=== PATIENT | female | born 1955 | race African-American/Black ===

== ENCOUNTER 2017-05-27 12:03 | Day surgery (SDC) | payer MEDICAID ==
[~2017-05-27] VITALS: Ht 154.9 cm; Wt 137.7 kg
[2017-05-27 12:51] LABS: HEMATOCRIT 34.5 % (36.0-48.0); HEMOGLOBIN 10.3 g/dL (12-16); MCH 25.8 pg (26.0-34.0); MCHC 29.9 g/dL (31.0-37.0); MCV 86.5 fL (80.0-100.0); MEAN PLATELET VOLUME 10.7 fL (7.4-10.4); RBC 3.99 10x6/uL (4.00-5.40); RDW 15.3 % (11.5-14.5); WBC 11.6 10x3/uL (4.8-10.8)
[2017-05-27 13:08] LABS: ANION GAP 10.7 mmol/L (8-16); CALCIUM 8.9 mg/dL (8.5-10.1); CARBON DIOXIDE 31.6 mmol/L (21.0-32.0); CREATININE - SERUM 0.9 mg/dL (0.6-1.3); POTASSIUM - SERUM 4.3 mmol/L (3.5-5.1)
[2017-05-27 14:02] VITALS: BP 155/79; Ht 154.9 cm; Wt 137.7 kg
--- NOTE | 2017-05-27 15:53 | NUR ---
1553 DISCHARGE INSTRUCTIONS COMPLETE. NO PRESCRIPTIONS GIVEN. NO QUESTIONS OR CONCERNS. ESCORTED OUT BY LENNY LO ACCOMPANIED BY DAUGHTERS.
--- NOTE | 2017-05-29 08:48 | OP ---
PATIENT NAME: ALEJANDRA PAGE MEDICAL RECORD: [id number] :59 LOCATION:D.OPS ADMISSION DATE: SURGEON: DARLING ZIMMERMAN DO DATE OF OPERATION: 05/27/2017 PROCEDURE: Colonoscopy. INDICATIONS FOR PROCEDURE: History of colon polyps and diverticulosis of colon as well as lower abdominal pain and right side abdominal pain, which the patient states has resolved. SCOPE: Olympus video pediatric colonoscope. MEDICATIONS: Propofol 550 mg IV per anesthesia. WITHDRAWAL TIME: 11 minutes. ESTIMATED BLOOD LOSS: None. COMPLICATIONS: None. Previous colonoscopy was 08/19/2011. FINDINGS: Informed consent was given. The patient was made comfortable with the above medication. After reaching an adequate level of sedation by slow IV push, the patient was placed on her left side. A digital rectal examination was performed and was normal. The endoscope was then advanced under direct visualization through the rectum to the cecum, confirmed by visualization of the appendiceal orifice and ileocecal valve. The scope was slowly withdrawn and mucosa was carefully examined. Prep quality was good. There were no polyps visualized on this examination. There were a few scattered mild diverticula throughout the colon. Retroflexion was performed in the rectum with visualization of small nonbleeding internal hemorrhoids. The endoscope was withdrawn from the patient. The patient tolerated the procedure well and there were no complications. IMPRESSION: 1. Mild diverticulosis. 2. Small nonbleeding internal hemorrhoids. PLAN AND RECOMMENDATIONS: 1. Discharge home when recovery parameters are met. 2. Continue current medications. 3. High fiber diet. 4. Consider supplementation diet with fiber such as Metamucil 1-2 tablespoons daily. 5. Recall colonoscopy in 5-7 years regarding a history of polyps. TRANSINT:[id number] Voice Confirmation ID: [id number] DOCUMENT ID: [id number] OPERATIVE REPORT [id number] ALEJANDRA PAGE DARLING ZIMMERMAN DO at 0848 CC: [id number] DICTATION DATE: 05/27/17 1451 DRAW PRESS OPERATOR: 05/27/17 1732 [facility] 05/27/17 [place] [address]
== END 2017-05-27 15:53 | disposition home or self-care (01) ==
LOC: D.OPS 12:03
PROVIDERS: Anesthesiology
DX: Z86.010 Personal history of colon polyps (principal); I10 Essential (primary) hypertension; E11.9 Type 2 diabetes mellitus without complications; E66.01 Morbid (severe) obesity due to excess calories; Z68.43 Body mass index [BMI] 50.0-59.9, adult; Z01.812 Encounter for preprocedural laboratory examination

== ENCOUNTER → 2018-02-16 09:44 | Outpatient (CLI) | payer MEDICAID ==
[2017-05-27 14:02] VITALS: BMI 57.4
[2018-02-21 03:06] LABS: IMMUNOGLOBULIN E 42 IU/mL (0-100)
== END | disposition home or self-care (01) ==
LOC: D.RT 09:44 → D.LAB 02-17 13:00 → D.RT 02-17 14:00
PROVIDERS: Internal Medicine Pulmonary Disease
DX: J45.909 Unspecified asthma, uncomplicated (principal)

== ENCOUNTER → 2018-09-08 09:09 | Outpatient (CLI) | payer MEDICARE ==
[~2018-09-08] VITALS: Ht 154.9 cm; Wt 141.5 kg
[2018-09-08 10:21] VITALS: Ht 154.9 cm; Wt 141.5 kg
== END | disposition home or self-care (01) ==
LOC: D.FANS 09-07 09:00
DX: E66.01 Morbid (severe) obesity due to excess calories (principal)

== ENCOUNTER 2018-09-09 07:19 | Outpatient (CLI) | payer MEDICARE ==
[2018-09-08 10:21] VITALS: BMI 58.9
== END 2018-09-09 09:15 ==
LOC: D.OPS 07:19
DX: E66.01 Morbid (severe) obesity due to excess calories (principal)

== ENCOUNTER 2018-11-01 05:59 | Day surgery (SDC) | payer MEDICARE, MEDICAID ==
[~2018-11-01] VITALS: Ht 154.9 cm; Wt 137.0 kg
[2018-11-01 06:58] LABS: ANION GAP 12.3 mmol/L (8-16); CALCIUM 8.9 mg/dL (8.5-10.1); CREATININE - SERUM 1.1 mg/dL (0.6-1.3); POTASSIUM - SERUM 4.3 mmol/L (3.5-5.1)
[2018-11-01 07:20] LABS: BASOPHILS 0.4 % (0-2); EOSINOPHILS 3.5 % (0-7); HEMOGLOBIN 10.2 g/dL (12-16); IMMATURE GRANULOCYTES 0.3 % (0-5); MCHC 29.1 g/dL (31.0-37.0); MCV 85.8 fL (80.0-100.0); MEAN PLATELET VOLUME 10.9 fL (7.4-10.4); MONOCYTES 6.9 % (2-11); NEUTROPHILS 69.9 % (40-80); PLATELET COUNT 312 10x3/uL (130-400); RBC 4.08 10x6/uL (4.00-5.40); RDW 15.2 % (11.5-14.5); WBC 10.4 10x3/uL (4.8-10.8)
[2018-11-01] MEDS ORDERED: ATIVAN0.5 MG PO (07:30)
[2018-11-01] MEDS ORDERED: CARTIA XT300 MG PO (07:30)
[2018-11-01] MEDS ORDERED: NORCO 10-325 TA1 TAB (07:31)
[2018-11-01] MEDS ORDERED: GLIMEPIRIDE4 MG PO (07:31)
[2018-11-01] MEDS ORDERED: VOLTAREN100 MG PO (07:31)
[2018-11-01] MEDS ORDERED: RANITIDINE HCL150 M1 PO (07:32)
[2018-11-01] MEDS ORDERED: PRAVACHOL80 MG PO (07:32)
[2018-11-01] MEDS ORDERED: PRINZIDE 20/12.1 TA1 PO (07:32)
[2018-11-01] MEDS ORDERED: CELEXA20 MG PO (07:33)
[2018-11-01 07:38] VITALS: BP 148/77; Ht 154.9 cm; Wt 137.0 kg
--- NOTE | 2018-11-01 10:20 | NUR ---
PT REC'D TO ROOM VIA STRETCHER FROM GI LAB. AWAKE, ALERT, OR IENTED.
--- NOTE | 2018-11-01 10:35 | NUR ---
UP TO BR, VOIDED. IV D/C'D CATH INTACT. TOLERATING FULL LIQ DIET.
--- NOTE | 2018-11-01 10:55 | NUR ---
D/C INSTRUCTOINS EXPLAINED TO PT. VOICED UNDERSTANDING. COPIES OF ALL GIVEN. D/C'D HOME VIA W/C TO PRIVATE CAR.
== END 2018-11-01 11:18 | disposition home or self-care (01) ==
LOC: D.OPS 05:59
PROVIDERS: Anesthesiology
DX: K21.9 Gastro-esophageal reflux disease without esophagitis (principal); K44.9 Diaphragmatic hernia without obstruction or gangrene; E66.01 Morbid (severe) obesity due to excess calories

== ENCOUNTER 2018-11-29 11:11 | Inpatient (IN) | payer MEDICARE, MEDICAID ==
[~2018-11-29] VITALS: Ht 152.4 cm; Wt 130.6 kg
[~2018-11-29 11:11] MED LIST: ATIVAN0.5 MG PO; CARTIA XT300 MG PO; CELEXA20 MG PO; GLIMEPIRIDE4 MG PO; NORCO 10-325 TA1 TAB; PRAVACHOL80 MG PO; PRINZIDE 20/12.1 TA1 PO; RANITIDINE HCL150 M1 PO; VOLTAREN100 MG PO
[2018-12-14] MEDS ORDERED: ACETAMINOPHEN PO (10:47)
[2018-12-14 11:52] LABS: ANION GAP 14.1 mmol/L (8-16); CALCIUM 8.7 mg/dL (8.5-10.1); CREATININE - SERUM 0.9 mg/dL (0.6-1.3); POTASSIUM - SERUM 4.1 mmol/L (3.5-5.1)
[2018-12-14 12:00] LABS: HEMATOCRIT 33.3 % (36.0-48.0); HEMOGLOBIN 9.9 g/dL (12-16); MCH 25.4 pg (26.0-34.0); MCHC 29.7 g/dL (31.0-37.0); MCV 85.6 fL (80.0-100.0); MEAN PLATELET VOLUME 10.5 fL (7.4-10.4); RBC 3.89 10x6/uL (4.00-5.40); RDW 14.8 % (11.5-14.5); WBC 10.6 10x3/uL (4.8-10.8)
[2018-12-15] VITALS (8 sets, daily range): BP systolic 100–154; BP diastolic 55–743; BMI 58.5; BMI 56.3
[2018-12-15] MEDS ORDERED: BAYER CHEWABLE81 MG PO (06:41)
--- NOTE | 2018-12-15 11:00 | NUR ---
RECEIVED TO ROOM 2214 VIA BED FROM PACU. A/O X3. 6 SMALL INSERTION SITES TO ABDOMEN. SKIN INTACT OTHERWISE. DENIES NEEDS. C/O ABDOMINAL PAIN LEVEL 8. OPEN HEARTH FURNACE OPERATOR HELPER INITIATED.
--- NOTE | 2018-12-15 13:30 | NUR ---
UP TO BR WITH ONE PERSON ASSIST. VOIDED WITHOUT DIFFICULTY. REPORTS GAS PAIN IMPROVED WITH ACTIVITY.
--- NOTE | 2018-12-15 20:54 | NUR ---
UP AD ENRIQUE IN ROOM.NO DISTRESS NOTED. ABD SOFT NONDISTENDED. LAP SITES X 6 WITH STERI STRIPS INTACT.IV TO LEFT HAND INTACT WITHOUT REDNESS OR EDEMA NOTED. FAMILY IN ROOM. CL IN REACH
--- NOTE | 2018-12-16 04:01 | NUR ---
I have reviewed this patient and I concur with the Shift Assessment completed by the Licensed Practical Nurse today this shift.
[2018-12-16 05:07] LABS: BASOPHILS 0.1 % (0-2); EOSINOPHILS 2.4 % (0-7); HEMATOCRIT 33.8 % (36.0-48.0); HEMOGLOBIN 9.8 g/dL (12-16); IMMATURE GRANULOCYTES 0.4 % (0-5); LYMPHOCYTES 17.1 % (15-50); MCH 25.2 pg (26.0-34.0); MCV 86.9 fL (80.0-100.0); MEAN PLATELET VOLUME 10.7 fL (7.4-10.4); MONOCYTES 6.2 % (2-11); NEUTROPHILS 73.8 % (40-80); PLATELET COUNT 340 10x3/uL (130-400); RBC 3.89 10x6/uL (4.00-5.40); RDW 15.2 % (11.5-14.5)
[2018-12-16 05:19] LABS: WBC 13.5 10x3/uL (4.8-10.8)
[2018-12-16 05:29] LABS: ALBUMIN 2.7 g/dL (3.4-5.0); BILIRUBIN - TOTAL 0.15 mg/dL (0.2-1.3); CALCIUM 8.4 mg/dL (8.5-10.1); CARBON DIOXIDE 25.9 mmol/L (21.0-32.0); POTASSIUM - SERUM 3.9 mmol/L (3.5-5.1); PROTEIN - SERUM 6.8 g/dL (6.4-8.2)
--- NOTE | 2018-12-16 07:38 | NUR ---
AWAKE AND ALERT. ORIENTED X3. NO C/O AT THIS TIME. LUNGS ARE CLEAR BILATERALLY, NO COUGH NOTED. SKIN IS INTACT WITHOUT REDNESSS EXCEPT 6 SMALL INSERTION SITES TO ABDOMEN WHICH ARE CLEAN AND DRY. IV TO LEFT HAND IS PATENT WITHOUT REDNESS AT INSERTION SITE. DENIES NEEDS.
--- NOTE | 2018-12-16 09:00 | NUR ---
O2 SAT AT 85% ON RA. PLACED ON L2 AT 2L NC SATS UP TO 95%. WILL MONITOR.
[2018-12-16 09:36] VITALS: BP 121/63
--- NOTE | 2018-12-16 10:00 | NUR ---
OFF UNIT VIA FOR EXRAY.
--- NOTE | 2018-12-16 10:30 | NUR ---
RETURNED FROM EXRAY. ASSISTED TO SHOWER PER STAFF. DENIES NEEDS.
[2018-12-16 12:24] VITALS: Ht 152.4 cm; Wt 130.6 kg
[2018-12-16 13:01] VITALS: BP 120/72
[2018-12-16] MEDS ORDERED: OXYCODONE HCL5 M1 PO (13:19)
[2018-12-16] MEDS ORDERED: ZOFRAN ODT4 MG/UDTAB PO (13:20)
--- NOTE | 2018-12-16 15:00 | NUR ---
DISCHARGED TO HOME AMBULATORY WITH FAMILY. DISCHARAGE INSTRUCTIONS GIVEN BOTH VERBALLY AND WRITTEN. ALL QUESTIONS ANSWERED. PATIENT VERBALZIED UNDERSTANDING OF SAME. IV TO LEFT HAND D/C WITH CATHETER INTACT. ALL BELONGINGS WITH PATIENT.
== END 2018-12-16 15:00 | disposition home or self-care (01) | DRG 621 ==
LOC: D.SDCHOLD 12-15 05:45 → D.MS 12-15 05:45 → D.SDCHOLD 12-15 08:00 → D.MS 12-15 11:05
PROVIDERS: Anesthesiology; ADMIT Surgery; ATTEND Surgery
PROC: 0DB64Z3 Excision of Stomach, Percutaneous Endoscopic Approach, Vertical (ICD-10-PCS; principal; 2018-12-15 08:15)
PROC: 0BQT4ZZ Repair Diaphragm, Percutaneous Endoscopic Approach (ICD-10-PCS; 2018-12-15 08:15)
DX: E66.01 Morbid (severe) obesity due to excess calories (principal); Z68.44 Body mass index [BMI] 60.0-69.9, adult; Q40.1 Congenital hiatus hernia; I10 Essential (primary) hypertension; E11.9 Type 2 diabetes mellitus without complications

== ENCOUNTER → 2019-03-25 08:44 | Outpatient (CLI) | payer MEDICARE, MEDICAID ==
[2018-12-16 12:24] VITALS: BMI 56.2
[~2019-03-25 08:44] MED LIST changes: +ACETAMINOPHEN PO; +BAYER CHEWABLE81 MG PO; +OXYCODONE HCL5 M1 PO; +ZOFRAN ODT4 MG/UDTAB PO
== END | disposition home or self-care (01) ==
LOC: D.RAD 03-02 13:00
PROVIDERS: ATTEND Internal Medicine Pulmonary Disease
DX: R93.89 Abnormal findings on diagnostic imaging of other specified body structures (principal)